=== PATIENT | male | born 1975 | race Asian ===

== ENCOUNTER → 2017-07-29 | Outpatient (CLI) | payer BC ==
[2017-07-29 10:27] LABS: CHOL/HDL RATIO 3.4 RATIO; HDL CHOLESTEROL 64 mg/dl (27-67); LDL CHOLESTEROL,CALCULATED 145 mg/dl; TRIGLYCERIDES 56 mg/dl (0-149)
[2017-07-29 10:27] LABS: CHOLESTEROL 220 mg/dl (100-200)
== END | disposition home or self-care (01) ==
LOC: LAB 09:20
DX: E78.00 Pure hypercholesterolemia, unspecified (principal)
CPT/HCPCS: 80061